=== PATIENT | female | born 1945 | race Caucasian/White ===

== ENCOUNTER 2017-06-09 19:24 | Emergency (ER) | payer MEDICARE ==
[~2017-06-09] VITALS: Ht 160 cm; Wt 47.6 kg
[2017-06-09] MEDS ORDERED: OXYCODONE-ACETAMINOPHEN 10-325 (19:37)
[2017-06-09] MEDS ORDERED: TRAZODONE 100 MG TABLET (19:37)
[2017-06-09] MEDS ORDERED: SERTRALINE HCL 50 MG TABLET (19:37)
[2017-06-09] MEDS ORDERED: COMBIVENT RESPIMAT INHAL SPRAY (19:37)
[2017-06-09] MEDS ORDERED: ALPRAZOLAM 1 MG TABLET (19:37)
--- NOTE | 2017-06-09 19:39 | NUR ---
PATIENT BROUGHT INTO ER BY [facility]09 FROM HOME FOR SLURRED SPEECH. PATIENT UPON ARRIVAL A/OX4 HOWEVER PATIENT HAING DIFFICULTY FORMING WORDS. ABLE TO SMILE SYMMETRICALLY. 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 DR YAN AT BEDSIDE
--- NOTE | 2017-06-09 19:55 | NUR ---
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
--- NOTE | 2017-06-09 19:55 | NUR ---
Daughter called [SUSI ECEHVARRIA ] who reported that she is the patient's DPOA and provided additional history. PASCUAL spoke with daughter, wishes to be called to be updated when possible.
[2017-06-09] MEDS ORDERED: IV NORMAL SALINE 500 ML BAG IV ONE (20:00)
--- NOTE | 2017-06-09 20:00 | NUR ---
PATEINT ABLE TO SPEAK WITH DIFFICULTY FORMING WORDS. PATIENT STATES HAD SIMILAR EPISODE OCCUR 2YEARS AGO DUE TO ANXIETY. PATIENT STATES HAS NOT BEEN ABLE TO TAKE ANTI ANXIETY MEDICATION IN 3 DAYS
[2017-06-09 20:05] LABS: BASOPHILS # (AUTO) 0.2 K/uL (0.0-8.0); BASOPHILS % (AUTO) 1.8 % (0.0-2.0); EOSINOPHILS % (AUTO) 0.1 % (0.0-7.0); HEMATOCRIT 46.4 % (37-47); HEMOGLOBIN 16.2 G/DL (12.0-16.0); LYMPHOCYTES # (AUTO) 2.6 K/UL (0.8-4.8); LYMPHOCYTES % (AUTO) 22.1 % (20.5-51.5); MEAN CORPUSCULAR HEMOGLOBIN 31.6 UUG (27.0-31.0); MEAN CORPUSCULAR HGB CONC 35 g/dL (32.0-37.0); MEAN CORPUSCULAR VOLUME 90.6 FL (81.0-99.0); MONOCYTES # (AUTO) 0.8 K/UL (0.1-1.30); MONOCYTES % (AUTO) 6.6 % (0.0-11.0); NEUTROPHILS # (AUTO) 8.1 K/UL (1.8-8.9); NEUTROPHILS % (AUTO) 69.4 % (38.5-71.5); PLATELET COUNT (AUTO) 237 K/UL (150-450); RED BLOOD CELL COUNT(AUTO) 5.13 MIL/UL (4.2-5.4); WHITE BLOOD COUNT (AUTO) 11.7 K/UL (4.0-11.2)
[2017-06-09 20:08] LABS: CREATININE 0.7 mg/dL (0.6-1.3); POTASSIUM 3.6 mmol/L (3.5-5.1)
--- NOTE | 2017-06-09 20:15 | NUR ---
PATIENT BACK FROM CT SCAN WITH NO DISTRESS NOTED.
--- NOTE | 2017-06-09 20:25 | NUR ---
DR YAN SPOKE WITH TELE STROKE MD
[2017-06-09] MEDS ORDERED: IV NORMAL SALINE 250 ML IV ONE (20:39)
[2017-06-09] MEDS ORDERED: NORMAL SALINE FLUSH 10 ML DISP.SYRIN ONE (20:39)
[2017-06-09] MEDS ORDERED: IOHEXOL 350 100 ML INFUS..BTL ONE (20:39)
[2017-06-09 21:09] LABS: *BILIRUBIN,URIN 1+ (NEGATIVE); *BLOOD, URINE NEGATIVE (NEGATIVE); *CLARITY,URINE SLIGHTLY CLOUDY (CLEAR); *COLOR,URINE YELLOW (YELLOW); *KETONES,URINE 2+ (NEGATIVE); *PROTEIN,URINE 1+ (NEGATIVE); LEUKOCYTE ESTERASE ,URINE 2+ (NEGATIVE); NITRITE, URINE NEGATIVE (NEGATIVE); UGLUCOSE NEGATIVE (NEGATIVE)
[2017-06-09 21:15] LABS: *AMPHETAMINE, URINE NEGATIVE (NEGATIVE); *BARBITURATE, URINE NEGATIVE (NEGATIVE); *CANNABINOID, URINE NEGATIVE (NEGATIVE); *COCCAINE, URINE NEGATIVE (NEGATIVE); *OPIATE, URINE NEGATIVE (NEGATIVE); *PHENCYCLIDINE SCREEN,URINE NEGATIVE (NEGATIVE)
--- NOTE | 2017-06-09 21:20 | NUR ---
Patient's boyfriend came. According to boyfriend patient has been having difficulty forming speech 2 day due to anxiety.Patient and boyfriend states has ran out of xanax x3 days. Similar ocurance happened 2years ago which xanax resoved symptoms
[2017-06-09 21:27] LABS: BACTERIA,URINE FEW /HPF (NONE SEEN); RBC,URINE 0-3 /HPF (0-3); SQUAMOUS EPITHELIAL CELL,UR FEW /HPF (NONE SEEN); WBC,URINE 20-50 /HPF (0-3)
[2017-06-09] MEDS ORDERED: ALPRAZOLAM 0.25 MG TABLET PO ONE (21:30)
[2017-06-09] MEDS ORDERED: ALPRAZOLAM 0.25 MG TABLET ONE (21:52)
--- NOTE | 2017-06-09 22:00 | NUR ---
IV removed. Catheter intact and site benign. Pressure and 4x4 gauze applied to site. No bleeding noted.
--- NOTE | 2017-06-09 22:06 | NUR ---
Patient discharged to home in stable conditon with boyfriend candis patient home. Written and verbal after care instructions given. Patient verbalizes understanding of instructions. Walked out of ER with steady gait.No distress noted
[2017-06-09 22:07] VITALS: BP 155/89
== END 2017-06-09 22:12 | disposition home or self-care (01) ==
LOC: ER 19:25
DX: F41.9 Anxiety disorder, unspecified (principal); I10 Essential (primary) hypertension; Z85.3 Personal history of malignant neoplasm of breast; F32.9 Major depressive disorder, single episode, unspecified
CPT/HCPCS: 36415; 70030-TC; 70450; 70496; 71010; 80307; 85025; 85730; 87086; 93005; A4663; J3490; J7050; Q9967